=== PATIENT | male | born 1980 | race African-American/Black ===

== ENCOUNTER 2020-12-22 08:00 | Emergency (ER) | payer MEDICAID, OTHER ==
[~2020-12-22] VITALS: Ht 170.2 cm; Wt 74.8 kg
[2020-12-22 08:01] VITALS: BP 127/88
[2020-12-22] MEDS ORDERED: ACETAMINOPHEN/CODEINE#3 (300/30mg) TAB PO ONE (09:45)
== END 2020-12-22 11:14 | disposition home or self-care (01) ==
LOC: ER 08:00
DX: S02.31XA Fracture of orbital floor, right side, initial encounter for closed fracture (principal); S63.502A Unspecified sprain of left wrist, initial encounter; S16.1XXA Strain of muscle, fascia and tendon at neck level, initial encounter; S00.11XA Contusion of right eyelid and periocular area, initial encounter; M25.551 Pain in right hip; V89.2XXA Person injured in unspecified motor-vehicle accident, traffic, initial encounter; Y93.89 Activity, other specified; Y92.89 Other specified places as the place of occurrence of the external cause; Y99.8 Other external cause status
CPT/HCPCS: 70450; 70486; 72040; 72070; 73110; 73502